=== PATIENT | female | born 1950 | race Two or more races ===

== ENCOUNTER 2016-07-01 08:18 | Inpatient (IN) | payer MEDICAID ==
[~2016-07-01] VITALS: Ht 157.5 cm; Wt 80.2 kg
[2016-07-01 09:43] LABS: Basophils # (auto) 0 uL; Basophils % (auto) 0.5 % (0.0-2.0); DEFINITIVE VIEW TRANSMISSION; Eosinophils # (auto) 0.1 uL; Eosinophils % (auto) 1.7 % (0.0-7.0); Hematocrit 38.7 % (36.0-46.0); Hemoglobin 12.4 g/dL (12.2-16.2); Lymphocytes # (auto) 1.2 uL; Mean Corpuscular Hemoglobin 26.5 pg (28.0-32.0); Mean Corpuscular Volume 82.8 fL (80.0-100.0); Mean Platelet Volume 9.1 fL (7.4-10.4); Monocytes # (auto) 0.4 uL; Monocytes % (auto) 7.7 % (0.0-12.0); Neutrophils % (auto) 65.1 % (37.0-80.0); Platelet Count (auto) 199 10^3/uL (140-450); Red Cell Distribution Width 14.3 % (11.6-16.0); White Blood Cell 4.6 10^3/uL (4.4-10.8)
[2016-07-01] MEDS ORDERED: SODIUM CHLORIDE 0.9% 1,000 ML IV ONE (09:57)
[2016-07-01] MEDS ORDERED: ASPirin 81 mg TAB PO ONE (10:00)
[2016-07-01 10:06] LABS: Albumin 3.6 g/dL (3.4-5.0); BUN/Creatinine Ratio 12.9; Calcium 8.4 mg/dL (8.5-10.1); Magnesium 2.2 mg/dL (1.6-2.6); Potassium 4.4 mmol/L (3.5-5.1)
[2016-07-01 10:09] LABS: Bilirubin, Total 0.4 mg/dL (0.2-1.0)
[2016-07-01] MEDS ORDERED: LORazepam 0.5 MG TAB PO PRN (11:30)
[2016-07-01] MEDS ORDERED: LACTULOSE 20Gm/30ML SOLN PO PRN (11:30)
[2016-07-01] MEDS ORDERED: ACETAMINOPHEN 500 MG TAB PO PRN (11:30)
[2016-07-01] MEDS ORDERED: PROMETHAZINE HCL 25 MG/ML 1ML IV PRN (11:30)
[2016-07-01] MEDS ORDERED: MORPHINE SULF INJ 2 MG/ML SYRINGE 1ML IV PRN ×2 (11:30)
[2016-07-01] MEDS ORDERED: HYDROcodone-ACET 5/325MG TAB PO PRN (11:30)
[2016-07-01] MEDS ORDERED: NITROGLYCERIN 0.4 MG SL TAB SL PRN (11:30)
[2016-07-01] MEDS: ENOXAPARIN SOD 40 MG/0.4 ML SYRINGE SC SCH (11:45)
[2016-07-01] MEDS: METOPROLOL TARTRATE 25 MG TAB PO SCH ×2 (11:45→21:54)
[2016-07-01] MEDS: SODIUM CHLORIDE 0.9% 1,000 ML IV SCH (12:03)
[2016-07-01 13:30] VITALS: BP 136/73
[2016-07-01] MEDS ORDERED: PANTOPRAZOLE 40 MG TAB PO ONE (13:45)
[2016-07-01] MEDS: NITROGLYCERIN 0.2MG/HR TOPICAL PATCH TD SCH (14:52)
[2016-07-01] MEDS ORDERED: OXYC325T14 PO (16:57)
[2016-07-01] MEDS ORDERED: ENAL2.5T PO (16:57)
[2016-07-01] MEDS ORDERED: OMEP20CA5 PO (16:57)
[2016-07-01 16:59] VITALS: BP 150/75
[2016-07-01] MEDS: TEMAZEPAM 15 MG CAP PO PRN (21:54)
[2016-07-01] MEDS: ATORVASTATIN 20 MG TAB PO SCH (21:54)
[2016-07-01 22:10] VITALS: BP 120/70
[2016-07-02] VITALS (7 sets, daily range): BP systolic 117–141; BP diastolic 52–69
[2016-07-02] MEDS: SODIUM CHLORIDE 0.9% 1,000 ML IV SCH ×2 (00:40→14:29)
[2016-07-02 06:30] LABS: Cholesterol 143 mg/dL (<200); HDL Cholesterol 43 mg/dL (40-59); LDL Cholesterol 92 mg/dL (<100); Triglycerides 128 mg/dL (<150)
[2016-07-02] MEDS ORDERED: INFLUENZA QUAD 2016-2017 0.5 ML SYRG IM ONE (09:00)
[2016-07-02] MEDS ORDERED: PNEUMOCOCCAL VACC POLYS 25 MCG/0.5 ML VIAL IM ONE (09:00)
[2016-07-02] MEDS: NITROGLYCERIN 0.2MG/HR TOPICAL PATCH TD SCH (10:00)
[2016-07-02] MEDS: ENOXAPARIN SOD 40 MG/0.4 ML SYRINGE SC SCH (10:00)
[2016-07-02] MEDS: ASPirin 81 mg TAB PO SCH (11:11)
[2016-07-02] MEDS: METOPROLOL TARTRATE 25 MG TAB PO SCH ×2 (11:12→22:00)
[2016-07-02] MEDS: PANTOPRAZOLE 40 MG TAB PO SCH (11:12)
[2016-07-02] MEDS: ATORVASTATIN 20 MG TAB PO SCH (21:16)
[2016-07-02] MEDS: TEMAZEPAM 15 MG CAP PO PRN (21:16)
[2016-07-03 04:47] VITALS: BP 117/60
[2016-07-03] MEDS: SODIUM CHLORIDE 0.9% 1,000 ML IV SCH ×2 (06:27→16:40)
[2016-07-03 08:00] VITALS: BP 121/68
[2016-07-03] MEDS ORDERED: ADENOSINE 67 MG in GIVE UN-DILUTED 0 ML IV ONE (08:15)
[2016-07-03 09:00] VITALS: BP 121/68
[2016-07-03] MEDS: PANTOPRAZOLE 40 MG TAB PO SCH (10:17)
[2016-07-03] MEDS: ASPirin 81 mg TAB PO SCH (10:17)
[2016-07-03] MEDS: METOPROLOL TARTRATE 25 MG TAB PO SCH (10:17)
[2016-07-03] MEDS: NITROGLYCERIN 0.2MG/HR TOPICAL PATCH TD SCH ×2 (10:19→11:42)
[2016-07-03] MEDS: ENOXAPARIN SOD 40 MG/0.4 ML SYRINGE SC SCH (10:21)
[2016-07-03 13:00] VITALS: BP 117/79
[2016-07-03 17:00] VITALS: BP 132/67
[2016-07-03 18:59] VITALS: BP 132/67
[2016-07-04] MEDS ORDERED: INFLUENZA QUAD 2016-2017 0.5 ML SYRG IM ONE (12:30)
[2016-07-04] MEDS ORDERED: PNEUMOCOCCAL VACC POLYS 25 MCG/0.5 ML VIAL IM ONE (12:30)
== END 2016-07-03 20:15 | disposition home or self-care (01) | DRG 198 ==
LOC: ER 08:18 → TELE 08:19 → TELE-EAST 13:19
PROVIDERS: ADMIT Internal Medicine; ATTEND Internal Medicine
DX: R07.89 Other chest pain (principal); I20.9 Angina pectoris, unspecified; E83.51 Hypocalcemia; I10 Essential (primary) hypertension; K21.9 Gastro-esophageal reflux disease without esophagitis; I12.9 Hypertensive chronic kidney disease with stage 1 through stage 4 chronic kidney disease, or unspecified chronic kidney disease; N18.2 Chronic kidney disease, stage 2 (mild); Z82.49 Family history of ischemic heart disease and other diseases of the circulatory system; Z83.3 Family history of diabetes mellitus; Z90.49 Acquired absence of other specified parts of digestive tract; Z90.89 Acquired absence of other organs; Z98.890 Other specified postprocedural states; M94.0 Chondrocostal junction syndrome [Tietze]
CPT/HCPCS: 36415; 71020; 78452; 80053; 80061; 82550; 83735; 84443; 84484; 85025; 85379; 85652; 86141; 93005; 93017; 93306; 94761; 96360; J0153

== ENCOUNTER 2017-10-22 14:37 | Emergency (ER) | payer MEDICAID ==
[~2017-10-22] VITALS: Ht 157.5 cm; Wt 79.4 kg
[~2017-10-22 14:37] MED LIST: ENAL2.5T PO; OMEP20CA74 PO; OXYC325T14 PO
[2017-10-22 15:08] LABS: Urine Bacteria FEW /hpf (None Seen); Urine Blood 2+ /uL (Negative); Urine Specific Gravity 1.003 (1.001-1.035); Urine WBC 10 /hpf (0 - 5)
[2017-10-22 15:15] LABS: Basophils # (auto) 0 uL; Basophils % (auto) 0.3 % (0.0-2.0); Eosinophils # (auto) 0.1 uL; Eosinophils % (auto) 1.1 % (0.0-7.0); Hematocrit 43.3 % (36.0-46.0); Hemoglobin 14.6 g/dL (12.2-16.2); Lymphocytes # (auto) 0.8 uL; Lymphocytes % (auto) 12.6 % (10.0-50.0); Mean Corpuscular Hemoglobin 27.1 pg (28.0-32.0); Mean Corpuscular Hgb Conc. 33.8 g/dL (32.0-36.0); Mean Corpuscular Volume 80.2 fL (80.0-100.0); Monocytes # (auto) 0.6 uL; Monocytes % (auto) 9.3 % (0.0-12.0); Neutrophils % (auto) 76.7 % (37.0-80.0); Nucleated Red Blood Cells % 0.2 %; Platelet Count (auto) 229 10^3/uL (140-450); Red Cell Distribution Width 14.7 % (11.8-14.3); White Blood Cell 6.5 10^3/uL (4.4-10.8)
[2017-10-22 15:37] LABS: Alanine Aminotransferase 24 U/L (13-56); Alkaline Phosphatase 98 U/L (45-117); Anion Gap 12 (5-15); Aspartate Aminotransferase 28 U/L (15-37); BUN/Creatinine Ratio 14.3; Bilirubin, Total 0.9 mg/dL (0.2-1.0); Blood Urea Nitrogen 14 mg/dL (7-18); Calcium 8.8 mg/dL (8.5-10.1); Carbon Dioxide 25 mmol/L (21-32); Chloride 99 mmol/L (98-107); GFR African American 73 mL/min; GFR Non-African American 61 mL/min; Glucose 93 mg/dL (74-106); Potassium 3.5 mmol/L (3.5-5.1); Sodium 136 mmol/L (136-145); Total Protein 8.5 g/dL (6.4-8.2)
[2017-10-22 16:04] VITALS: BP 117/83
== END 2017-10-22 16:09 | disposition home or self-care (01) ==
LOC: ER 14:40
DX: N39.0 Urinary tract infection, site not specified (principal); K21.9 Gastro-esophageal reflux disease without esophagitis; I10 Essential (primary) hypertension; Z79.899 Other long term (current) drug therapy; Z90.49 Acquired absence of other specified parts of digestive tract
CPT/HCPCS: 36415; 71046; 80053; 81001; 84484; 85025; 93005

== ENCOUNTER 2022-03-04 09:00 | Emergency (ER) | payer MEDICARE, MEDICAID ==
[~2022-03-04] VITALS: Ht 157.5 cm; Wt 80.0 kg
[~2022-03-04 09:00] MED LIST changes: -ENAL2.5T PO; +ENAL2.5T7 PO
[2022-03-04 09:55] VITALS: BP 178/79
[2022-03-04] MEDS ORDERED: ACETAMINOPHEN 325 MG TAB PO ONE (10:30)
[2022-03-04] MEDS ORDERED: PRED20TA2 PO (10:34)
[2022-03-04] MEDS ORDERED: ACET-1080 PO (10:34)
== END 2022-03-04 10:44 | disposition home or self-care (01) ==
LOC: ER 09:00
DX: G56.01 Carpal tunnel syndrome, right upper limb (principal); I10 Essential (primary) hypertension; K21.9 Gastro-esophageal reflux disease without esophagitis; Z90.49 Acquired absence of other specified parts of digestive tract; Z79.899 Other long term (current) drug therapy
CPT/HCPCS: 29125

== ENCOUNTER 2022-09-07 08:15 | Day surgery (SDC) | payer MEDICARE, MEDICAID ==
[2022-09-05 10:34] LABS: Basophils # (auto) 0 10 ^3/uL (0-0.2); Basophils % (auto) 0.4 % (0.0-2.0); Eosinophils # (auto) 0.1 10 ^3/uL (0-0.8); Eosinophils % (auto) 2.2 % (0.0-7.0); Hematocrit 38.5 % (36.0-46.0); Hemoglobin 13.3 g/dL (12.2-16.2); Lymphocytes % (auto) 17.5 % (10.0-50.0); Mean Corpuscular Hemoglobin 27.8 pg (28.0-32.0); Mean Corpuscular Hgb Conc. 34.6 g/dL (32.0-36.0); Mean Corpuscular Volume 80.2 fL (80.0-100.0); Monocytes # (auto) 0.5 10 ^3/uL (0-1.3); Monocytes % (auto) 8.1 % (0.0-12.0); Neutrophils # (auto) 4.3 10 ^3/uL (1.6-8.6); Neutrophils % (auto) 71.8 % (37.0-80.0); Nucleated Red Blood Cells % 0.1 %; Red Cell Distribution Width 14.3 % (11.8-14.3)
[2022-09-05 10:42] LABS: INR 0.96 (0.9-1.15); Partial Thromboplastin Time 29.1 sec (24.6-33.4)
[2022-09-05 11:31] LABS: Potassium 4.1 mmol/L (3.5-5.1)
[2022-09-05 11:42] LABS: Albumin 3.6 g/dL (3.4-5.0); BUN/Creatinine Ratio 23.9 (10.0-20.0); Bilirubin, Total 0.3 mg/dL (0.2-1.0); Calcium 9.1 mg/dL (8.5-10.1); Total Protein 7.8 g/dL (6.4-8.2)
[~2022-09-07] VITALS: Ht 157.5 cm; Wt 78.9 kg
[~2022-09-07 08:15] MED LIST changes: +CALC667C5 PO; +CHOL100047 PO; +CYAN1TAB14 PO; +ENAL10TA12 PO; -ENAL2.5T7 PO; +HYDR-4188 OR; +MULT-688 PO; -OMEP20CA74 PO; -OXYC325T14 PO; +PANT40T PO
[2022-09-07] MEDS ORDERED: SODIUM CHLORIDE LOCK 10 ML ONE (08:33)
[2022-09-07] MEDS ORDERED: fentaNYL CITRATE 100 MCG/2 ML VL ONE (08:34)
[2022-09-07] MEDS ORDERED: MIDAZOLAM HCL 5 MG/ML-1ML VIAL ONE (08:34)
[2022-09-07] MEDS ORDERED: diphenhdrAMINE HCL 50 MG/1 ML VL ONE (08:34)
[2022-09-07] MEDS ORDERED: LIDOCAINE VISCOUS 2% 15ML UD ONE (08:51)
[2022-09-07 09:30] VITALS: BP 130/69
== END 2022-09-07 09:34 | disposition home or self-care (01) ==
LOC: GI 08:15
PROVIDERS: ATTEND Internal Medicine Gastroenterology
DX: R10.13 Epigastric pain (principal); K29.50 Unspecified chronic gastritis without bleeding; K44.9 Diaphragmatic hernia without obstruction or gangrene; Z20.822 Contact with and (suspected) exposure to COVID-19
CPT/HCPCS: 36415; 43239; 80053; 85025; 85610; 85730; J1200; J2250; J3010; J7030; U0003